=== PATIENT | female | born 1940 | race Caucasian/White ===

== ENCOUNTER → 2017-08-20 | Outpatient (CLI) | payer OTHER ==
[~2017-08-20] MED LIST: ALLEGRA ALLERG180 MG PO; CARAFATE 11 GM/10 M1 PO; CLOBETASOL EMOL15 GM TOP; COUMADIN 3 MG TA3 MG PO; COUMADIN 4 MG TA4 M1 PO; GENTAMYCIN; HERCEPTIN KIT440 M1 IV; HYDROCODONE-APA1 TA1 PO; LETROZOLE2.5 MG PO; MULTI VITAMIN1 EACH PO; PROCTOSOL-HC28.35 GM RECTAL; PROVIGIL 100 M100 M1 PO; TRAMADOL 50 MG50 MG PO
== END ==
LOC: HYPER 08-06 13:08
DX: L89.154 Pressure ulcer of sacral region, stage 4 (principal); F03.90 Unspecified dementia, unspecified severity, without behavioral disturbance, psychotic disturbance, mood disturbance, and anxiety; M19.90 Unspecified osteoarthritis, unspecified site; M46.28 Osteomyelitis of vertebra, sacral and sacrococcygeal region; Z85.3 Personal history of malignant neoplasm of breast; Z86.718 Personal history of other venous thrombosis and embolism; Z86.711 Personal history of pulmonary embolism

== ENCOUNTER → 2017-11-19 | Outpatient (CLI) | payer OTHER ==
[~2017-11-19] MED LIST changes: +ARICEPT 5 MG TAB5 MG PO; +LOPRESSOR50 MG PO; +[UNRECOGNIZED DRUG - OTHER]
== END ==
LOC: HYPER 06:20
DX: L89.154 Pressure ulcer of sacral region, stage 4 (principal); M86.8X8 Other osteomyelitis, other site; C50.919 Malignant neoplasm of unspecified site of unspecified female breast; C71.9 Malignant neoplasm of brain, unspecified; I10 Essential (primary) hypertension; J81.1 Chronic pulmonary edema; M19.90 Unspecified osteoarthritis, unspecified site; F03.90 Unspecified dementia, unspecified severity, without behavioral disturbance, psychotic disturbance, mood disturbance, and anxiety; Z86.718 Personal history of other venous thrombosis and embolism; Z86.711 Personal history of pulmonary embolism

== ENCOUNTER 2017-11-24 19:42 | Inpatient (IN) | payer OTHER ==
[~2017-11-24] VITALS: Ht 152.4 cm; Wt 73.2 kg
--- NOTE | ~2017-11-24 | EKG ---
[address] [address] ELECTROCARDIOGRAM REPORT Name: UMA COLEMAN Room #: 462- ADM IN M.R.#: [id number] Admission: 11/24/17 Attend Phys: Emmanuel Cervantse MD Discharge: Date of : 36 Report #: [id number] THIS REPORT FOR: //name// [facility] Test Date: 2017-11-26 Test Time: 11:10:56 Pat Name: UMA COLEMAN Department: Room: 462 Gender: F Metropolitan Editor: PERICO : 1940 Requested By: Rainer Ugarte Order Number: [id number] MD: Og Hutson Measurements Intervals Bledsoe Rate: 109 P: 46 CO: 161 QRS: -9 QRSD: 82 T: -2 QT: 332 QTc: 448 Interpretive Statements Sinus tachycardia Atrial premature complexes Abnormal R-wave progression, early transition Borderline T wave abnormalities Compared to ECG 07/20/2013 14:51:47 Atrial premature complex(es) now present T-wave abnormality now present Electronically Signed On 11-26-2017 16:31:07 CDT by Og Hutson [email or web address] <ELECTRONICALLY SIGNED> By: Og Hutson MD, FAC 11/26/17 1631 1110 1110 Og Hutson MD, FAC /EPI
--- NOTE | ~2017-11-24 | HC ---
[facility] [place] [address] CONSULTATION Name: UMA COLEMAN Room #: 462-P ADM IN M.R.#: [id number] Admission: 11/24/17 Attend Phys: Emmanuel Cervantes MD Discharge: Date of : 36 Report #: [id number] THIS REPORT FOR: //name// CC: Nina Cervantes DATE OF SERVICE: 11/26/2017 REASON FOR CONSULTATION: I was asked to evaluate concerning extensive sacral wound with osteomyelitis. HISTORY OF PRESENT ILLNESS: The patient is a 77-year-old with metastatic breast cancer, markedly debilitated, at home being cared by her family with a tracheostomy. She has had recurrent urinary tract infections. Has a chronic indwelling Sagastume catheter. She has been undergoing gentamicin irrigation for recurrent Pseudomonas infection. She does have staghorn calculi noted. This has been a longstanding issue for her. Since the spring of this year, she has had sacral wound with nonhealing despite advanced wound care. She has been on antibiotic therapy, but none in the most recent past. Presents now after home health nurse and daughter had noticed increased erythema around the wound and some increased drainage. No fever, chills or sweats. The patient was encephalopathic. Daughter states that she has been fairly unresponsive for the last month. She does have some response intermittently. She is being fed via a PEG tube. Has a right upper extremity PICC. REVIEW OF SYSTEMS: She has had minimal tracheal secretions. She has been tolerating her tube feeds reasonably well. No cardiac issues. She is off any chemotherapy program other than letrozole. There has been no diarrhea. No other rashes or skin lesions. A 10-point review of systems is unable to be further completed due to the patient's encephalopathy. ALLERGIES: None known. MEDICATIONS: As noted on her MAR, now on vancomycin. PAST MEDICAL HISTORY: Nephrolithiasis; pyelonephritis; recurrent Pseudomonas urinary tract infection; right breast cancer with metastatic lesions to the brain, lungs, she has been on chemotherapy and radiation. A PEG tube and Port-A-Cath that was removed and now has a right upper extremity PICC. DVT, PE, seizure disorder, tracheostomy, pneumonia, appendectomy, hysterectomy. FAMILY HISTORY: Noncontributory. SOCIAL HISTORY: Nonsmoker. No significant alcohol intake. Family members care for her. [address] [address] CONSULTATION Name: UMA COLEMAN Room #: 462-P [facility] IN M.R.#: [id number] Admission: 11/24/17 Attend Phys: Emmanuel Cervantes MD Discharge: Date of : 36 Report #: [id number] PHYSICAL EXAMINATION: GENERAL: She was unresponsive. She was very thin in the face, moderate obesity. Alopecia. Extensive sacral decubitus stage 4 with exposed bone. No purulent drainage. No surrounding cellulitis. There was some tunneling. About a full Kerlix roll was able to be packed into the wound. No lymphadenopathy noted. HEENT: Eyes: No conjunctival injection. Mouth: No oral mucositis or lesion. NECK: Supple, with no thyromegaly or mass. No JVD. LUNGS: Clear. HEART: Regular, without murmur. ABDOMEN: Soft, nontender. No hepatosplenomegaly or mass appreciated. Her PEG site was unremarkable. NEUROLOGIC: She was able to move all extremities. She was nonverbal on today's examination. Unable to cooperate with cranial nerve exam. LABORATORY STUDIES: Sodium 138, potassium 4.4, bicarbonate of 26, creatinine 1.2. Hemoglobin 5.7, WBC 12.8, platelet count was 490,000, 83% segs, 6% lymphs. Blood cultures are pending. X-ray of the sacrum and coccyx: Destruction of the lower one-half of the sacrum consistent with osteomyelitis. Chest x-ray, atelectasis, right mid lung and right medial lower lung. IMPRESSION: A 77-year-old with metastatic breast cancer, tracheostomy, markedly debilitated with encephalopathy. She presents now with progressive sacral decubitus and osteomyelitis. I do not see any acute change here in her status. She does have leukocytosis. She does have a profound anemia, which has been a chronic problem for her and has required blood transfusions. RECOMMENDATION: We will continue with IV antibiotic therapy including vancomycin and cefepime. This will allow Pseudomonal coverage in addition to MRSA coverage. I do not have any recent culture results. Overall, this appears to be more palliative treatment program for her. We will adjust her antibiotics as necessary pending further studies. She is to see General Surgery this hospitalization for possible further debridement. <ELECTRONICALLY SIGNED> By: Austin Troy MD 11/27/17 1152 0958 [id number] Austin Troy MD /nt
--- NOTE | ~2017-11-24 | HC ---
[facility] [place] [address] CONSULTATION Name: UMA COLEMAN Room #: 462-P ADM IN M.R.#: [id number] Admission: 11/24/17 Attend Phys: Emmanuel Cervantes MD Discharge: Date of : 36 Report #: [id number] THIS REPORT FOR: //name// CC: Nina Cervantes DATE OF SERVICE: 11/25/2017 CHIEF COMPLAINT: Sacral stage 4 pressure ulceration. HISTORY OF PRESENT ILLNESS: This is a 77-year-old female patient with whom I am familiar from evaluation in the clinic. She is currently a hospice patient with stage 4 breast cancer with metastases to lung and brain. She has undergone chemotherapy and external beam radiation. The patient is unable to provide any information about herself and is somnolent, which is her usual state since I have been seeing her for wound care issues. PAST MEDICAL HISTORY: Positive for nephrolithiasis, pyelonephritis, urinary tract infection, sepsis, breast cancer, septic shock, PEG tube, Port-A-Cath, pulmonary embolus, seizure disorder, previous hysterectomy. FAMILY HISTORY: Noncontributory. SOCIAL HISTORY: Negative for alcohol or tobacco use. REVIEW OF SYSTEMS: Not obtainable due to the patient's decreased level of consciousness. PHYSICAL EXAMINATION: VITAL SIGNS: At this time include pulse 82, respiratory rate 18, blood pressure 101/61, temperature 99.2. GENERAL: This is a chronically ill-appearing, very debilitated female patient who appears to be in no distress. HEAD: Normocephalic. NECK: Supple. LUNGS: Diminished. HEART: Regular. ABDOMEN: Soft. PEG tube noted. Sacral region demonstrates a very large stage 4 sacral pressure ulceration. There is some hyperpigmentation of the skin around the ulceration. There is some tunneling, undermining noted in all directions, some mild bony exposure. NEUROLOGIC: The patient is somnolent, minimally responsive to verbal stimuli. LABORATORY DATA: Sodium 132, potassium 4.9, chloride 99, BUN 33, creatinine is 1.1, albumin is 2.8. White blood cell count of 17.3, hemoglobin of 6.9. [address] [address] CONSULTATION Name: UMA COLEMAN Room #: 462-P ADM IN M.R.#: [id number] Admission: 11/24/17 Attend Phys: Emmanuel Cervantes MD Discharge: Date of : 36 Report #: [id number] CLINICAL IMPRESSION: 1. Stage 4 sacral pressure ulceration. 2. Sacral osteomyelitis. 3. Stage IV breast cancer with metastases to lung and brain. RECOMMENDATIONS: At this point in time, the patient will remain under hospice care. I do not feel any aggressive surgical intervention would be appropriate or warranted at this time. I have evaluated the wound, I think we will hold the VAC for a few days and use the Dakin's moist gauze dressing in order to keep the drape off the skin, but I think we could resume the VAC shortly thereafter. She will need q. 2 hour turning, repositioning, aggressive nutritional support. She has a very dedicated family support system in place with children and at her bedside 24 hours a day. Likely returning to the home setting would be appropriate. I do appreciate being asked to see her in consultation. <ELECTRONICALLY SIGNED> By: Seng Ordonez MD 11/27/17 2039 2133 1503 Seng Ordonez MD /nt
[~2017-11-24 19:42] MED LIST changes: -ARICEPT 5 MG TAB5 MG PO; -LOPRESSOR50 MG PO; -[UNRECOGNIZED DRUG - OTHER]
[2017-11-24 19:43] VITALS: BP 103/64
[2017-11-24] MEDS ORDERED: [UNRECOGNIZED DRUG - OTHER] (19:53)
[2017-11-24] MEDS ORDERED: ARICEPT 5 MG TAB5 MG PO (19:53)
[2017-11-24] MEDS ORDERED: LOPRESSOR50 MG PO (19:53)
[2017-11-24 20:30] LABS: HEMATOCRIT 23.5 % (37.0-47.0); HEMOGLOBIN 7.2 gm/dL (12.0-15.0); MCH 19.6 pg (26.0-34.0); MCHC 30.8 g/dL (28.0-37.0); MCV 63.5 fL (80.0-100.0); PLATELET COUNT 558 thou/uL (150-400); RBC 3.69 mil/uL (4.20-5.00); RDW 22.4 % (10.5-14.5); WBC 14.6 thou/uL (4.0-11.0)
[2017-11-24 20:33] LABS: CALCIUM 9.6 mg/dL (8.5-10.1); CREATININE 1.2 mg/dL (0.6-1.0); POTASSIUM 5.3 mmol/L (3.5-5.1)
[2017-11-24 20:56] LABS: ANISOCYTOSIS 2+; POLYCHROMASIA OCCASIONAL
[2017-11-24 20:57] LABS: MICROCYTES 2+
[2017-11-24 21:00] LABS: HYPOCHROMASIA 2+
[2017-11-24 21:59] VITALS: BP 129/70
[2017-11-24 22:36] VITALS: BP 165/78
[2017-11-24 23:00] VITALS: BP 148/61
[2017-11-25 01:41] LABS: HEMOGLOBIN 6.9 gm/dL (12.0-15.0); MCH 18.9 pg (26.0-34.0); MCHC 29.8 g/dL (28.0-37.0); MCV 63.4 fL (80.0-100.0); RBC 3.63 mil/uL (4.20-5.00); RDW 22.3 % (10.5-14.5); WBC 17.3 thou/uL (4.0-11.0)
[2017-11-25 01:53] LABS: INR 2.5
[2017-11-25 02:04] LABS: CALCIUM 8.8 mg/dL (8.5-10.1); CREATININE 1.1 mg/dL (0.6-1.0); POTASSIUM 4.9 mmol/L (3.5-5.1)
[2017-11-25 07:20] VITALS: BP 92/46
[2017-11-25 17:59] VITALS: BP 108/63
[2017-11-25 20:10] VITALS: BP 101/61
[2017-11-26 06:02] LABS: ABSOLUTE NEUTROPHILS 10.6 thou/uL (1.4-8.2); BASOPHILS 0.5 % (0.0-2.0); EOSINOPHILS 1.7 % (0.0-3.0); LYMPHOCYTES 6.7 % (24.0-44.0); MCH 19.6 pg (26.0-34.0); MCHC 30.5 g/dL (28.0-37.0); MCV 64.3 fL (80.0-100.0); MONOCYTES 7.7 % (1.0-8.0); PLATELET COUNT 490 thou/uL (150-400); POLYS 83.4 % (36.0-66.0); RBC 2.89 mil/uL (4.20-5.00); RDW 22.3 % (10.5-14.5); WBC 12.8 thou/uL (4.0-11.0)
[2017-11-26 06:05] LABS: CALCIUM 8.5 mg/dL (8.5-10.1); CREATININE 1.2 mg/dL (0.6-1.0); POTASSIUM 4.4 mmol/L (3.5-5.1)
[2017-11-26 06:06] LABS: ALBUMIN 1.2 g/dL (3.4-5.0); MAGNESIUM 1.9 mg/dL (1.8-2.4)
[2017-11-26 06:10] LABS: % SATURATION 5 % (20-39); IRON 9 ug/dL (50-170); TIBC 164 ug/dL (250-450)
[2017-11-26 06:13] LABS: HEMATOCRIT 18.6 % (37.0-47.0); HEMOGLOBIN 5.7 gm/dL (12.0-15.0)
[2017-11-26 06:18] LABS: OBSERVED RETIC COUNT 2.02 % (0.6-2.6)
[2017-11-26 06:37] LABS: FERRITIN 174 ng/mL (8-252)
[2017-11-26 08:06] VITALS: BP 106/56
[2017-11-26 08:42] LABS: ANISOCYTOSIS 2+; HYPOCHROMASIA 2+; MICROCYTES 3+; PLATELET ESTIMATE INCREASED; POLYCHROMASIA SLIGHT
[2017-11-26 09:19] VITALS: BP 100/52; BP 113/59
[2017-11-26 13:09] LABS: URINE BILIRUBIN NEGATIVE (Negative); URINE BLOOD 3+ (Negative); URINE CLARITY CLEAR; URINE COLOR YELLOW; URINE GLUCOSE-RANDOM* NEGATIVE (Negative); URINE KETONES NEGATIVE (Negative); URINE PROTEIN (DIPSTICK) TRACE (Negative); URINE UROBILINOGEN 0.2 E.U./dl (0.2-1.0)
[2017-11-26 13:10] LABS: URINE LEUKOCYTES-REFLEX 1+ (Negative); URINE NITRITE-REFLEX POSITIVE (Negative)
[2017-11-26 13:20] LABS: CASTS None Seen /LPF (None Seen); CRYSTALS None Seen /LPF (None Seen); SQUAMOUS 0-3 Few /LPF (0-3)
[2017-11-26 13:21] LABS: URINE RBC 3-10 Few /HPF (0-2); YEAST-REFLEX Present (None Seen)
[2017-11-26 15:10] LABS: HEMATOCRIT 22.2 % (37.0-47.0)
[2017-11-26 16:33] VITALS: BP 118/66
[2017-11-26 17:34] LABS: INR 2.2; PROTIME 22.7 Seconds (9.3-11.4)
[2017-11-26 19:30] VITALS: BP 126/66
[2017-11-27 06:33] LABS: HEMATOCRIT 22.7 % (37.0-47.0); HEMOGLOBIN 7.1 gm/dL (12.0-15.0); MCHC 31.4 g/dL (28.0-37.0); PLATELET COUNT 446 thou/uL (150-400); RBC 3.39 mil/uL (4.20-5.00); RDW 25.2 % (10.5-14.5)
[2017-11-27 06:43] LABS: CALCIUM 8.5 mg/dL (8.5-10.1); MAGNESIUM 2.1 mg/dL (1.8-2.4); POTASSIUM 4.7 mmol/L (3.5-5.1)
[2017-11-27 07:34] VITALS: BP 143/77
[2017-11-27 08:44] LABS: ABSOLUTE NEUTROPHILS 10.4 thou/uL (1.4-8.2); METAMYELOCYTES 2 %; MYELOCYTES 2 %
[2017-11-27 08:45] LABS: ANISOCYTOSIS 3+; HYPOCHROMASIA 2+; MICROCYTES 2+
[2017-11-27 14:15] VITALS: BP 137/66
[2017-11-27 19:15] VITALS: BP 123/71
[2017-11-28 04:28] VITALS: BP 127/67
[2017-11-28 05:41] LABS: HEMOGLOBIN 6.9 gm/dL (12.0-15.0); MCH 21.1 pg (26.0-34.0); MCHC 31.2 g/dL (28.0-37.0); MCV 67.7 fL (80.0-100.0); PLATELET COUNT 451 thou/uL (150-400); RBC 3.25 mil/uL (4.20-5.00); RDW 25.6 % (10.5-14.5); WBC 16.2 thou/uL (4.0-11.0)
[2017-11-28 05:47] LABS: CALCIUM 8.4 mg/dL (8.5-10.1); POTASSIUM 4.4 mmol/L (3.5-5.1)
[2017-11-28 07:22] VITALS: BP 109/64
[2017-11-28 08:20] LABS: ABSOLUTE NEUTROPHILS 13.8 thou/uL (1.4-8.2); HYPOCHROMASIA 1+; MICROCYTES 2+; POLYCHROMASIA 1+
[2017-11-28 10:05] VITALS: BP 109/64
[2017-11-28 17:12] VITALS: BP 107/57; BP 96/60
[2017-11-28 19:15] VITALS: BP 109/67
[2017-11-29 04:04] VITALS: BP 109/62
[2017-11-29 06:14] LABS: PROTIME 20.7 Seconds (9.3-11.4)
[2017-11-29 07:28] VITALS: BP 129/69
[2017-11-29] MEDS ORDERED: FERROUS SU220 MG/52 PER TUBE (10:52)
[2017-11-29] MEDS ORDERED: FOLIC ACID 1 MG1 MG PER TUBE (10:53)
[2017-11-29 14:58] VITALS: BP 117/61
[2017-11-29 15:00] LABS: HEMATOCRIT 26.9 % (37.0-47.0); HEMOGLOBIN 8.7 gm/dL (12.0-15.0)
== END 2017-11-29 18:00 | disposition home health service (06) | DRG 871 ==
LOC: ER 19:42 → EROBS 21:50 → 4W 21:50
PROVIDERS: Family Medicine; Hospitalist; Nurse Practitioner Acute Care; Nurse Practitioner Family
PROC: 02HV33Z Insertion of Infusion Device into Superior Vena Cava, Percutaneous Approach (ICD-10-PCS; principal; 2017-11-25)
PROC: 30233N1 Transfusion of Nonautologous Red Blood Cells into Peripheral Vein, Percutaneous Approach (ICD-10-PCS; 2017-11-26)
DX: A41.9 Sepsis, unspecified organism (principal); L89.154 Pressure ulcer of sacral region, stage 4; M46.28 Osteomyelitis of vertebra, sacral and sacrococcygeal region; E87.1 Hypo-osmolality and hyponatremia; G93.40 Encephalopathy, unspecified; N39.0 Urinary tract infection, site not specified; J96.10 Chronic respiratory failure, unspecified whether with hypoxia or hypercapnia; I82.509 Chronic embolism and thrombosis of unspecified deep veins of unspecified lower extremity; E46 Unspecified protein-calorie malnutrition; D64.9 Anemia, unspecified; G40.909 Epilepsy, unspecified, not intractable, without status epilepticus; F03.90 Unspecified dementia, unspecified severity, without behavioral disturbance, psychotic disturbance, mood disturbance, and anxiety; R00.0 Tachycardia, unspecified; I50.9 Heart failure, unspecified; S30.91XA Unspecified superficial injury of lower back and pelvis, initial encounter; Z85.3 Personal history of malignant neoplasm of breast; Z92.21 Personal history of antineoplastic chemotherapy; Z92.3 Personal history of irradiation; Z93.1 Gastrostomy status; Z86.711 Personal history of pulmonary embolism; Z90.710 Acquired absence of both cervix and uterus; Z93.0 Tracheostomy status; Z90.49 Acquired absence of other specified parts of digestive tract; Z79.01 Long term (current) use of anticoagulants; Z23 Encounter for immunization; Z68.31 Body mass index [BMI] 31.0-31.9, adult; X58.XXXA Exposure to other specified factors, initial encounter; Y93.89 Activity, other specified; Y92.89 Other specified places as the place of occurrence of the external cause; Y99.8 Other external cause status
CPT/HCPCS: 10045

== ENCOUNTER → 2018-01-29 | Outpatient (CLI) | payer OTHER ==
[~2018-01-29] MED LIST changes: +ARICEPT 5 MG TAB5 MG PO; +FERROUS SU220 MG/52 PER TUBE; +FOLIC ACID 1 MG1 MG PER TUBE; +LOPRESSOR50 MG PO; +[UNRECOGNIZED DRUG - OTHER]
== END ==
LOC: HYPER 01-21 07:03
DX: L89.154 Pressure ulcer of sacral region, stage 4 (principal); M86.8X8 Other osteomyelitis, other site; C50.919 Malignant neoplasm of unspecified site of unspecified female breast; C71.9 Malignant neoplasm of brain, unspecified; E46 Unspecified protein-calorie malnutrition; I10 Essential (primary) hypertension; K21.9 Gastro-esophageal reflux disease without esophagitis; M19.90 Unspecified osteoarthritis, unspecified site; F03.90 Unspecified dementia, unspecified severity, without behavioral disturbance, psychotic disturbance, mood disturbance, and anxiety; Z86.711 Personal history of pulmonary embolism; Z86.718 Personal history of other venous thrombosis and embolism

== ENCOUNTER → 2018-03-23 | Outpatient (CLI) | payer OTHER | LOC: HYPER 03-11 09:22 | DX: L89.154 Pressure ulcer of sacral region, stage 4 (principal); C50.919 Malignant neoplasm of unspecified site of unspecified female breast; C71.9 Malignant neoplasm of brain, unspecified; I10 Essential (primary) hypertension; J81.1 Chronic pulmonary edema; K21.9 Gastro-esophageal reflux disease without esophagitis; M19.90 Unspecified osteoarthritis, unspecified site; M86.8X8 Other osteomyelitis, other site; F03.90 Unspecified dementia, unspecified severity, without behavioral disturbance, psychotic disturbance, mood disturbance, and anxiety; Z86.718 Personal history of other venous thrombosis and embolism; Z86.711 Personal history of pulmonary embolism ==

== ENCOUNTER → 2018-05-04 | Outpatient (CLI) | payer OTHER | LOC: HYPER 07:05 | DX: L89.154 Pressure ulcer of sacral region, stage 4 (principal); C50.919 Malignant neoplasm of unspecified site of unspecified female breast; C71.9 Malignant neoplasm of brain, unspecified; I10 Essential (primary) hypertension; M19.90 Unspecified osteoarthritis, unspecified site; M86.8X8 Other osteomyelitis, other site; J81.1 Chronic pulmonary edema; F03.90 Unspecified dementia, unspecified severity, without behavioral disturbance, psychotic disturbance, mood disturbance, and anxiety; Z86.718 Personal history of other venous thrombosis and embolism; Z87.01 Personal history of pneumonia (recurrent); Z86.711 Personal history of pulmonary embolism ==

== ENCOUNTER → 2018-06-08 | Outpatient (CLI) | payer OTHER | LOC: HYPER 07:00 | DX: L89.154 Pressure ulcer of sacral region, stage 4 (principal); C50.919 Malignant neoplasm of unspecified site of unspecified female breast; C71.9 Malignant neoplasm of brain, unspecified; M86.8X8 Other osteomyelitis, other site; I10 Essential (primary) hypertension; K21.9 Gastro-esophageal reflux disease without esophagitis; M19.90 Unspecified osteoarthritis, unspecified site; F03.90 Unspecified dementia, unspecified severity, without behavioral disturbance, psychotic disturbance, mood disturbance, and anxiety; Z86.718 Personal history of other venous thrombosis and embolism; Z86.711 Personal history of pulmonary embolism ==

== ENCOUNTER → 2018-07-13 | Outpatient (CLI) | payer OTHER | LOC: HYPER 06:58 | DX: L89.154 Pressure ulcer of sacral region, stage 4 (principal); C50.919 Malignant neoplasm of unspecified site of unspecified female breast; C71.9 Malignant neoplasm of brain, unspecified; I10 Essential (primary) hypertension; M19.90 Unspecified osteoarthritis, unspecified site; M86.8X8 Other osteomyelitis, other site; J18.9 Pneumonia, unspecified organism; F03.90 Unspecified dementia, unspecified severity, without behavioral disturbance, psychotic disturbance, mood disturbance, and anxiety; Z86.711 Personal history of pulmonary embolism; Z86.718 Personal history of other venous thrombosis and embolism ==

== ENCOUNTER → 2018-09-14 | Outpatient (CLI) | payer OTHER | LOC: HYPER 08-24 06:31 | DX: L89.154 Pressure ulcer of sacral region, stage 4 (principal); C50.919 Malignant neoplasm of unspecified site of unspecified female breast; C71.9 Malignant neoplasm of brain, unspecified; I10 Essential (primary) hypertension; K21.9 Gastro-esophageal reflux disease without esophagitis; M19.90 Unspecified osteoarthritis, unspecified site; F03.90 Unspecified dementia, unspecified severity, without behavioral disturbance, psychotic disturbance, mood disturbance, and anxiety; Z86.718 Personal history of other venous thrombosis and embolism; Z86.711 Personal history of pulmonary embolism ==

== ENCOUNTER → 2018-11-16 | Outpatient (CLI) | payer OTHER | LOC: HYPER 07:23 | DX: L89.154 Pressure ulcer of sacral region, stage 4 (principal); C50.919 Malignant neoplasm of unspecified site of unspecified female breast; C71.9 Malignant neoplasm of brain, unspecified; I10 Essential (primary) hypertension; M19.90 Unspecified osteoarthritis, unspecified site; R54 Age-related physical debility; F03.90 Unspecified dementia, unspecified severity, without behavioral disturbance, psychotic disturbance, mood disturbance, and anxiety; Z86.718 Personal history of other venous thrombosis and embolism; Z87.01 Personal history of pneumonia (recurrent); Z86.711 Personal history of pulmonary embolism ==

== ENCOUNTER → 2019-01-06 | Outpatient (CLI) | payer OTHER | LOC: HYPER 08:24 | DX: L89.154 Pressure ulcer of sacral region, stage 4 (principal); L89.322 Pressure ulcer of left buttock, stage 2; L89.312 Pressure ulcer of right buttock, stage 2; M86.8X8 Other osteomyelitis, other site; C50.919 Malignant neoplasm of unspecified site of unspecified female breast; C71.9 Malignant neoplasm of brain, unspecified; I10 Essential (primary) hypertension; K21.9 Gastro-esophageal reflux disease without esophagitis; M19.90 Unspecified osteoarthritis, unspecified site; F03.90 Unspecified dementia, unspecified severity, without behavioral disturbance, psychotic disturbance, mood disturbance, and anxiety; Z86.718 Personal history of other venous thrombosis and embolism; Z86.711 Personal history of pulmonary embolism ==

== ENCOUNTER → 2019-02-08 | Outpatient (CLI) | payer OTHER | LOC: HYPER 08:14 | DX: L89.154 Pressure ulcer of sacral region, stage 4 (principal); C50.919 Malignant neoplasm of unspecified site of unspecified female breast; C71.9 Malignant neoplasm of brain, unspecified; M86.8X8 Other osteomyelitis, other site; E46 Unspecified protein-calorie malnutrition; I10 Essential (primary) hypertension; K21.9 Gastro-esophageal reflux disease without esophagitis; M19.90 Unspecified osteoarthritis, unspecified site; F03.90 Unspecified dementia, unspecified severity, without behavioral disturbance, psychotic disturbance, mood disturbance, and anxiety; Z85.3 Personal history of malignant neoplasm of breast; Z86.718 Personal history of other venous thrombosis and embolism; Z86.711 Personal history of pulmonary embolism; Z85.841 Personal history of malignant neoplasm of brain ==

== ENCOUNTER → 2019-04-05 | Outpatient (CLI) | payer OTHER | LOC: HYPER 09:42 | DX: L89.154 Pressure ulcer of sacral region, stage 4 (principal); C50.929 Malignant neoplasm of unspecified site of unspecified male breast; C71.9 Malignant neoplasm of brain, unspecified; R54 Age-related physical debility; M46.28 Osteomyelitis of vertebra, sacral and sacrococcygeal region; I10 Essential (primary) hypertension; M19.90 Unspecified osteoarthritis, unspecified site; H26.9 Unspecified cataract; Z86.718 Personal history of other venous thrombosis and embolism; Z86.711 Personal history of pulmonary embolism ==